=== PATIENT | female | born 1955 | race Caucasian/White ===

== ENCOUNTER 2017-04-20 10:48 | Outpatient (CLI) | payer OTHER ==
[~2017-04-20] VITALS: Ht 160.1 cm; Wt 78.6 kg
[2017-04-20] VITALS (18 sets, daily range): BP systolic 95–170; BP diastolic 47–106; PULSE 51–61; TEMP 98–98.1
[2017-04-20] MEDS ORDERED: ZYRTEC 10MG10 MG PO (11:48)
[2017-04-20] MEDS ORDERED: ALTACE 10MG TAB10 MG PO (11:49)
[2017-04-20] MEDS ORDERED: LIPITOR 80MG80 MG PO (11:49)
[2017-04-20] MEDS ORDERED: HYGROTON 2525 MG/TAB PO (11:49)
[2017-04-20] MEDS ORDERED: CELEXA40 MG PO (11:50)
[2017-04-20 11:51] LABS: HEMATOCRIT 38.9 % (37.0-47.0); HEMOGLOBIN 13.2 g/dl (12.5-16.0); MEAN CELL VOLUME 95 fl (80.0-100.0); MEAN CORPUSCULAR HEMOGLOBIN 32 pg (27.0-31.0); MEAN CORPUSCULAR HGB CONC 34 g/dl (33.0-37.0); MEAN PLATELET VOLUME 10.2 fl (7.4-10.4); PLATELET COUNT 253 K/mm3 (130-400); RED BLOOD COUNT 4.11 M/mm3 (4.10-5.30)
[2017-04-20] MEDS ORDERED: SYNTHROID0.088 MG/T PO ×2 (11:51→11:52)
[2017-04-20 11:52] LABS: PROTHROMBIN TIME 11.4 SECONDS (9.7-12.8)
[2017-04-20] MEDS ORDERED: CENTRUM SILVER1 TAB PO (11:52)
[2017-04-20] MEDS ORDERED: VITAMINC1000TA PO (11:53)
[2017-04-20] MEDS ORDERED: MASON NATURAL2000 IU PO (11:53)
[2017-04-20] MEDS ORDERED: KRILL OIL 5001 EACH PO (11:54)
[2017-04-20] MEDS ORDERED: CALCIUM CARBON650 M2 PO (11:54)
[2017-04-20 12:03] LABS: CALCIUM 9.7 mg/dL (8.4-10.2); CREATININE, serum 0.81 mg/dL (0.52-1.25); POTASSIUM 3.4 mmol/L (3.4-5.0)
[2017-04-20] MEDS ORDERED: ASPIRIN E.C. 8181 MG PO (15:43)
== END 2017-04-20 16:30 | disposition home or self-care (01) ==
LOC: EUO 10:48 → COL.RAD 11:00 → EUO 16:30
PROVIDERS: Internal Medicine Cardiovascular Disease
DX: G45.9 Transient cerebral ischemic attack, unspecified (principal); I08.0 Rheumatic disorders of both mitral and aortic valves; I70.0 Atherosclerosis of aorta; I10 Essential (primary) hypertension; E78.5 Hyperlipidemia, unspecified; H53.9 Unspecified visual disturbance; Z80.8 Family history of malignant neoplasm of other organs or systems
CPT/HCPCS: J2250; J2405; J3010